=== PATIENT | female | born 1970 ===

== ENCOUNTER 2016-10-18 19:22 | Emergency (ER) | payer SELFPAY ==
[2016-10-18 19:22] VITALS: BMI 29.4
[2016-10-18 19:57] VITALS: O2SAT 100
--- NOTE | 2016-10-18 20:18 | C.PDOC ---
History Of Present Illness 46 year old female presents to the ED with complaints of hearing voices and decreased appetite for two weeks. As per patient's niece, patient has been losing weight, has been diagnosed with schizophrenia and is compliant with medications. Patient also notes a constant left sided chest pain for two weeks that she describes as an "empty" sensation. Patient's niece states patient was seen in the ED 3-4 days ago for similar complaints. She denies any other medical problems, physical complaints, and suicidal or homicidal ideations. Time Seen by Provider: 10/18/16 20:09 Chief Complaint (Nursing): Psychiatric Evaluation History Per: Family (niece ) History/Exam Limitations: no limitations Onset/Duration Of Symptoms: Persistent (2 weeks ) Current Symptoms Are (Timing): Still Present Suicide/Self Injury Attempted (Context): None Associated Symptoms: Other (patient is hearing voice and decreased appetite ). denies: Suicidal Thoughts, Suicidal Plan Involuntary Hold By: None Recent travel outside of the [place]: No Additional History Per: Patient Past Medical History Reviewed: Historical Data, Nursing Documentation, Vital Signs Vital Signs: Last Vital Signs Temp 98.2 F 10/19/16 01:25 Pulse 72 10/19/16 01:25 Resp 20 10/19/16 01:25 BP 112/70 10/19/16 01:25 Pulse Ox 100 10/19/16 01:25 - Medical History PMH: Anxiety, Bipolar Disorder, Depression Family History: States: Other Other Family History: non-contributory - Social History Hx Tobacco Use: No Hx Alcohol Use: No Hx Substance Use: No - Immunization History Hx Tetanus Toxoid Vaccination: No Hx Influenza Vaccination: No Hx Pneumococcal Vaccination: No Review Of Systems Constitutional: Positive for: Other (decreased appetite ). Negative for: Fever , Chills Cardiovascular: Positive for: Chest Pain (left sided chest pain describes as "empty" sensation ). Negative for: Palpitations Respiratory: Negative for: Cough, Shortness of Breath Gastrointestinal: Negative for: Nausea, Vomiting, Abdominal Pain, Diarrhea Neurological: Negative for: Weakness, Numbness, Headache Psych: Positive for: Other (patient states she is hearing voices ). Negative for: Suicidal ideation Physical Exam - Physical Exam Appears: Non-toxic, No Acute Distress Skin: Warm, Dry Head: Atraumatic Eye(s): bilateral: Normal Inspection, PERRL, EOMI Oral Mucosa: Moist Neck: Supple Chest: Symmetrical, No Deformity Cardiovascular: Rhythm Regular Respiratory: No Rhonchi, No Wheezing Gastrointestinal/Abdominal: Soft, No Tenderness, No Distention, No Guarding, No Rebound Extremity: Normal ROM, No Tenderness Neurological/Psych: Oriented x3, Normal Speech, Normal Cognition, Normal Cranial Nerves, Normal Motor, Normal Sensation, Normal Reflexes, Other (flat affect ) ED Course And Treatment - Laboratory Results Result Diagrams: 10/18/16 20:53 10/18/16 20:53 O2 Sat by Pulse Oximetry: 100 (room air ) Medical Decision Making Medical Decision Making: EKG interpretation: nsr 63, nl axis, nl int, no acute ischemia cxr- nad the pt is medically clear for psych admission with medicine consult Disposition - Disposition Disposition: Trans to Other Acute Care Hosp Disposition Time: 01:00 Condition: STABLE - Clinical Impression Clinical Impression: Schizophrenia - Scribe Statement The provider has reviewed the documentation as recorded by the Scribangel Orozco All medical record entries made by the Ronibangel were at my direction and personally dictated by me. I have reviewed the chart and agree that the record accurately reflects my personal performance of the history, physical exam, medical decision making, and the department course for this patient. I have also personally directed, reviewed, and agree with the discharge instructions and disposition.
[2016-10-18 21:01] LABS: HCG,QUALITATIVE URINE NEGATIVE (NEGATIVE)
[2016-10-18 21:04] LABS: SQUAMOUS EPITHIAL 1 /hpf (0-5); URINE BACTERIA OCC (<OCC); URINE BILIRUBIN NEGATIVE (NEGATIVE); URINE BLOOD NEGATIVE (NEGATIVE); URINE CLARITY Clear (Clear); URINE COLOR Straw (YELLOW); URINE GLUCOSE (UA) NORMAL (Normal); URINE LEUKOCYTE ESTERASE NEG Leu/uL (Negative); URINE NITRATE NEGATIVE (NEGATIVE); URINE PROTEIN NEGATIVE (NEGATIVE); URINE UROBILINOGEN NORMAL mg/dL (0.2-1.0)
[2016-10-18 21:06] LABS: BASO # 0.1 K/uL (0.0-0.2); BASO % 0.5 % (0.0-2.0); EOS % 0.5 % (0.0-4.0); LYMPH # 2.8 K/uL (1.0-4.3); LYMPH % 30.1 % (20.0-40.0); MEAN CORPUSCULAR HEMOGLOBIN 22.3 pg (27.0-31.0); MEAN CORPUSCULAR HGB CONC 29.4 g/dL (33.0-37.0); MEAN PLATELET VOLUME 8.1 fL (7.2-11.7); MONO % 10.7 % (0.0-10.0); NEUT # 5.5 K/uL (1.8-7.0); NEUT % 58.2 % (50.0-75.0); RBC 3.78 Mil/uL (3.80-5.20); RED CELL DISTRIBUTION WIDTH 17.1 % (11.5-14.5); WHITE BLOOD COUNT 9.4 K/uL (4.8-10.8)
[2016-10-18 21:08] LABS: HEMOGLOBIN 8.4 g/dL (11.0-16.0); MEAN CELL VOLUME 75.8 fL (81.0-99.0)
[2016-10-18 21:14] LABS: BENZODIAZEPINES, UR NEGATIVE (NEGATIVE)
[2016-10-18 21:16] LABS: ALBUMIN 4.4 g/dL (3.5-5.0)
[2016-10-18 21:17] LABS: OPIATES, UR NEGATIVE (NEGATIVE)
[2016-10-18 21:18] LABS: ALB/GLOB RATIO 1.4 (1.0-2.1); AST/SGOT 45 U/L (14-36); GFR AFRICAN-AMERICAN > 60; GFR NON-AFRICAN AMERICAN > 60; PHENCYCLIDINE, UR NEGATIVE (NEGATIVE)
[2016-10-18 21:19] LABS: ALT/SGPT 32 U/L (9-52); BLOOD UREA NITROGEN 12 mg/dL (7-17); CALCIUM 9.8 mg/dl (8.6-10.4)
[2016-10-18 21:20] LABS: SALICYLATE < 1.0 mg/dL 1
[2016-10-18 21:28] LABS: ACETAMINOPHEN < 10.0 ug/mL (10.0-30.0)
[2016-10-18 21:49] LABS: BARBITURATES, UR NEGATIVE (NEGATIVE)
--- NOTE | 2016-10-18 22:53 | CP.PCM.HP ---
Addendum entered and electronically signed by Sherrill Lewis DO 10/19/16 01:19 : As per niece, please notify her, when her Aunt is being transferred to a psych facility - [facility] [phone]. The niece is russian speaking. Original Note: <JoshuaSherrill - Last Filed: 10/19/16 00:36> History of Present Illness - History of Present Illness History of Present Illness: Medicine CONSULT Note CC: Depression, chest pain HPI: 46F with PMHx of Depression, Schizophrenia presents to the ED with depression and chest pain. As per the patient's niece, she has been depressed for the past 2 weeks with a decrease in appetite, doesn't want to get out of bed. She started having left sided chest pain that she describes as an "emptiness". This "pain" does not radiate, she states she continues to feel this left sided chest pain. Denied fever, chills, headache, abdominal pain, n/v/ d/c, or urinary symptoms. PMHx: Depression, Schizophrenia PSHx: Denied Meds: As per MAR Allergies: NKDA SHx: Denied tobacco, alcohol, or illicit drug use FHx: Unremarkable Present on Admission - Present on Admission Any Indicators Present on Admission: No Review of Systems - Constitutional Constitutional: Weight Loss. absent: Fatigue, Lethargy - EENT Eyes: absent: Change in Vision Ears: absent: Ear Pain, Tinnitus Nose/Mouth/Throat: absent: Nasal Discharge - Breasts Breasts: absent: Pain - Cardiovascular Cardiovascular: Chest Pain. absent: Chest Pain at Rest - Respiratory Respiratory: absent: Cough, Dyspnea - Gastrointestinal Gastrointestinal: absent: Abdominal Pain - Genitourinary Genitourinary: absent: Dysuria, Hematuria - Musculoskeletal Musculoskeletal: absent: Back Pain - Integumentary Integumentary: absent: Wounds - Neurological Neurological: absent: Tingling, Tremor, Vertigo, Weakness - Psychiatric Psychiatric: Anxiety, Depression - Endocrine Endocrine: absent: Polydipsia, Polyphagia, Polyuria - Hematologic/Lymphatic Hematologic: absent: Easy Bleeding, Easy Bruising Past Patient History - Infectious Disease Hx of Infectious Diseases: None - Past Social History Smoking Status: Never Smoked - CARDIAC Hx Cardiac Disorders: No - PULMONARY Hx Respiratory Disorders: No - NEUROLOGICAL Hx Neurological Disorder: No - HEENT Hx HEENT Problems: No - RENAL Hx Chronic Kidney Disease: No - ENDOCRINE/METABOLIC Hx Endocrine Disorders: No - HEMATOLOGICAL/ONCOLOGICAL Hx Blood Disorders: No - INTEGUMENTARY Hx Dermatological Problems: No - MUSCULOSKELETAL/RHEUMATOLOGICAL Hx Musculoskeletal Disorders: No - GASTROINTESTINAL Hx Gastrointestinal Disorders: No - GENITOURINARY/GYNECOLOGICAL Hx Genitourinary Disorders: No - PSYCHIATRIC Hx Anxiety: Yes Hx Bipolar Disorder: Yes Hx Depression: Yes Hx Substance Use: No - SURGICAL HISTORY Hx Surgeries: Yes Hx Tubal Ligation: Yes - ANESTHESIA Hx Anesthesia: No Hx Anesthesia Reactions: No Hx Malignant Hyperthermia: No Meds Allergies/Adverse Reactions: Allergies Allergy/AdvReac Type Severity Reaction Status Date / Time No Known Allergies Allergy Verified 04/30/16 11:32 Physical Exam - Constitutional Appears: No Acute Distress - Head Exam Head Exam: NORMAL INSPECTION, NORMOCEPHALIC - Eye Exam Eye Exam: EOMI, Normal appearance, PERRL - ENT Exam ENT Exam: Mucous Membranes Moist - Respiratory Exam Respiratory Exam: Clear to Auscultation Bilateral, NORMAL BREATHING PATTERN. absent: Wheezes - Cardiovascular Exam Cardiovascular Exam: REGULAR RHYTHM, RRR, +S1, +S2 - GI/Abdominal Exam GI & Abdominal Exam: Normal Bowel Sounds, Soft. absent: Distended, Tenderness - Rectal Exam Rectal Exam: Deferred - Extremities Exam Extremities exam: Positive for: normal inspection, pedal pulses present. Negative for: pedal edema, tenderness - Back Exam Back exam: NORMAL INSPECTION - Neurological Exam Neurological exam: Alert, CN II-XII Intact, Oriented x3 - Psychiatric Exam Psychiatric exam: Anxious, Depressed - Skin Skin Exam: Dry, Intact, Normal Color, Warm Results - Vital Signs Recent Vital Signs: Last Vital Signs Temp 98.4 F 10/18/16 19:53 Pulse 85 10/18/16 19:53 Resp 18 10/18/16 19:53 BP 124/81 10/18/16 19:53 Pulse Ox 100 10/18/16 21:02 - Labs Result Diagrams: 10/18/16 20:53 10/18/16 20:53 Labs: Laboratory Results - last 24 hr 10/18/16 10/18/16 10/18/16 20:53 20:53 20:53 WBC 9.4 RBC 3.78 L Hgb 8.4 L D Hct 28.7 L MCV 75.8 L D MCH 22.3 L MCHC 29.4 L RDW 17.1 H Plt Count 395 MPV 8.1 Neut % (Auto) 58.2 Lymph % (Auto) 30.1 Hand % (Auto) 10.7 H Eos % (Auto) 0.5 Baso % (Auto) 0.5 Neut # 5.5 Lymph # 2.8 Hand # 1.0 H Eos # 0.0 Baso # 0.1 Sodium 141 Potassium 3.6 Chloride 100 Carbon Dioxide 27 Anion Gap 17 BUN 12 Creatinine 0.9 Est GFR ( Amer) > 60 Est GFR (Non-Af Amer) > 60 Random Glucose 105 Calcium 9.8 Total Bilirubin 0.4 AST 45 H ALT 32 Alkaline Phosphatase 60 Troponin I < 0.0120 Total Protein 7.7 Albumin 4.4 Globulin 3.3 Albumin/Globulin Ratio 1.4 Urine Color Straw Urine Clarity Clear Urine pH 7.0 Ur Specific [place] 1.003 Urine Protein Negative Urine Glucose (UA) Normal Urine Ketones Negative Urine Blood Negative Urine Nitrate Negative Urine Bilirubin Negative Urine Urobilinogen Normal Ur Leukocyte Esterase Neg Urine WBC (Auto) 3 Urine RBC (Auto) < 1 Ur Squamous Epith Cells 1 Urine Bacteria Occ H Urine HCG, Qual Negative Salicylates Urine Opiates Screen Urine Methadone Screen Acetaminophen Ur Barbiturates Screen Ur Phencyclidine Scrn Ur Amphetamines Screen U Benzodiazepines Scrn U Oth Cocaine Metabols U Cannabinoids Screen Alcohol, Quantitative < 10 10/18/16 10/18/16 20:53 20:53 WBC RBC Hgb Hct MCV MCH MCHC RDW Plt Count MPV Neut % (Auto) Lymph % (Auto) Hand % (Auto) Eos % (Auto) Baso % (Auto) Neut # Lymph # Hand # Eos # Baso # Sodium Potassium Chloride Carbon Dioxide Anion Gap BUN Creatinine Est GFR ( Amer) Est GFR (Non-Af Amer) Random Glucose Calcium Total Bilirubin AST ALT Alkaline Phosphatase Troponin I Total Protein Albumin Globulin Albumin/Globulin Ratio Urine Color Urine Clarity Urine pH Ur Specific [place] Urine Protein Urine Glucose (UA) Urine Ketones Urine Blood Urine Nitrate Urine Bilirubin Urine Urobilinogen Ur Leukocyte Esterase Urine WBC (Auto) Urine RBC (Auto) Ur Squamous Epith Cells Urine Bacteria Urine HCG, Qual Salicylates < 1.0 Urine Opiates Screen Negative Urine Methadone Screen Negative Acetaminophen < 10.0 L Ur Barbiturates Screen Negative Ur Phencyclidine Scrn Negative Ur Amphetamines Screen Negative U Benzodiazepines Scrn Negative U Oth Cocaine Metabols Negative U Cannabinoids Screen Negative Alcohol, Quantitative Assessment & Plan - Assessment and Plan (Free Text) Assessment: 46F with PMHx of Depression, Schizophrenia presents to the ED with depression and chest pain. Plan: Chest pain * EKG: nsr 63, nl axis, nl int, no acute ischemia * 1st SYDNEE: negative * F/U ROMIs, EKG Iron Deficiency Anemia * Asymptomatic * H/H: 8.4/28.7, baseline --> 11.1 (07/2015) * Iron Panel: Iron: 26, TIBC 516, % Saturation 5, Ferritin 4.6 * Monitor Depression/Anxiety * Restarted home medications: Risperdal 1mg PO BID , Klonopin 0.5mg PO BID , Trazodone 100mg PO QHS, and Benztropine 1mg PO BID * Management as per psych Schizophrenia * Restarted home medications:Risperdal 1mg PO BID , Klonopin 0.5mg PO BID , Trazodone 100mg PO QHS, and Benztropine 1mg PO BID * Management as per psych Prophylactic Measures * GI PPX: Protonix 40mg PO daily * DVT PPX: Heparin SC Q12H * Regular Diet DW Joshua Klein DO, PGY-1 <David Sanches - Last Filed: 10/19/16 06:16> Results - Vital Signs Recent Vital Signs: Last Vital Signs Temp 98.2 F 10/19/16 01:25 Pulse 72 10/19/16 01:25 Resp 20 10/19/16 01:25 BP 112/70 10/19/16 01:25 Pulse Ox 100 10/19/16 01:25 - Labs Result Diagrams: 10/18/16 20:53 10/18/16 20:53 Labs: Laboratory Results - last 24 hr 10/18/16 10/18/16 10/18/16 20:53 20:53 20:53 WBC 9.4 RBC 3.78 L Hgb 8.4 L D Hct 28.7 L MCV 75.8 L D MCH 22.3 L MCHC 29.4 L RDW 17.1 H Plt Count 395 MPV 8.1 Neut % (Auto) 58.2 Lymph % (Auto) 30.1 Hand % (Auto) 10.7 H Eos % (Auto) 0.5 Baso % (Auto) 0.5 Neut # 5.5 Lymph # 2.8 Hand # 1.0 H Eos # 0.0 Baso # 0.1 Sodium 141 Potassium 3.6 Chloride 100 Carbon Dioxide 27 Anion Gap 17 BUN 12 Creatinine 0.9 Est GFR ( Amer) > 60 Est GFR (Non-Af Amer) > 60 Random Glucose 105 Calcium 9.8 Iron TIBC % Saturation Ferritin Total Bilirubin 0.4 AST 45 H ALT 32 Alkaline Phosphatase 60 Troponin I < 0.0120 Total Protein 7.7 Albumin 4.4 Globulin 3.3 Albumin/Globulin Ratio 1.4 Urine Color Straw Urine Clarity Clear Urine pH 7.0 Ur Specific [place] 1.003 Urine Protein Negative Urine Glucose (UA) Normal Urine Ketones Negative Urine Blood Negative Urine Nitrate Negative Urine Bilirubin Negative Urine Urobilinogen Normal Ur Leukocyte Esterase Neg Urine WBC (Auto) 3 Urine RBC (Auto) < 1 Ur Squamous Epith Cells 1 Urine Bacteria Occ H Urine HCG, Qual Negative Salicylates Urine Opiates Screen Urine Methadone Screen Acetaminophen Ur Barbiturates Screen Ur Phencyclidine Scrn Ur Amphetamines Screen U Benzodiazepines Scrn U Oth Cocaine Metabols U Cannabinoids Screen Alcohol, Quantitative < 10 10/18/16 10/18/16 10/18/16 20:53 20:53 22:47 WBC RBC Hgb Hct MCV MCH MCHC RDW Plt Count MPV Neut % (Auto) Lymph % (Auto) Hand % (Auto) Eos % (Auto) Baso % (Auto) Neut # Lymph # Hand # Eos # Baso # Sodium Potassium Chloride Carbon Dioxide Anion Gap BUN Creatinine Est GFR ( Amer) Est GFR (Non-Af Amer) Random Glucose Calcium Iron 26 L TIBC 516 H % Saturation 5 L Ferritin Total Bilirubin AST ALT Alkaline Phosphatase Troponin I Total Protein Albumin Globulin Albumin/Globulin Ratio Urine Color Urine Clarity Urine pH Ur Specific [place] Urine Protein Urine Glucose (UA) Urine Ketones Urine Blood Urine Nitrate Urine Bilirubin Urine Urobilinogen Ur Leukocyte Esterase Urine WBC (Auto) Urine RBC (Auto) Ur Squamous Epith Cells Urine Bacteria Urine HCG, Qual Salicylates < 1.0 Urine Opiates Screen Negative Urine Methadone Screen Negative Acetaminophen < 10.0 L Ur Barbiturates Screen Negative Ur Phencyclidine Scrn Negative Ur Amphetamines Screen Negative U Benzodiazepines Scrn Negative U Oth Cocaine Metabols Negative U Cannabinoids Screen Negative Alcohol, Quantitative 10/18/16 22:47 WBC RBC Hgb Hct MCV MCH MCHC RDW Plt Count MPV Neut % (Auto) Lymph % (Auto) Hand % (Auto) Eos % (Auto) Baso % (Auto) Neut # Lymph # Hand # Eos # Baso # Sodium Potassium Chloride Carbon Dioxide Anion Gap BUN Creatinine Est GFR ( Amer) Est GFR (Non-Af Amer) Random Glucose Calcium Iron TIBC % Saturation Ferritin 4.6 Total Bilirubin AST ALT Alkaline Phosphatase Troponin I Total Protein Albumin Globulin Albumin/Globulin Ratio Urine Color Urine Clarity Urine pH Ur Specific [place] Urine Protein Urine Glucose (UA) Urine Ketones Urine Blood Urine Nitrate Urine Bilirubin Urine Urobilinogen Ur Leukocyte Esterase Urine WBC (Auto) Urine RBC (Auto) Ur Squamous Epith Cells Urine Bacteria Urine HCG, Qual Salicylates Urine Opiates Screen Urine Methadone Screen Acetaminophen Ur Barbiturates Screen Ur Phencyclidine Scrn Ur Amphetamines Screen U Benzodiazepines Scrn U Oth Cocaine Metabols U Cannabinoids Screen Alcohol, Quantitative Assessment & Plan - Date & Time Date: 10/19/16 (I have seen and examined the patient. I agree with the findings and plan of care as documented by Dr. Lewis. Patient with chest pain. ROMIx3 with EKG. Aspirin and Statin. Also with anemia. Follow H/H. Check iron studies. Transfuse if necessary. Continue home meds for history of schizophrenia and depression/anxiety. Monitor for acute changes.) Time: 06:15 Attending/Attestation - Attestation I have personally seen and examined this patient.: Yes I have fully participated in the care of the patient.: Yes I have reviewed all pertinent clinical information: Yes
[2016-10-18 22:58] LABS: IRON 26 ug/dL (37-170)
[2016-10-18 23:07] LABS: % IRON SATURATION 5 (20-55); TOTAL IRON BINDING CAPACITY 516 ug/dL (250-450)
[2016-10-19] MEDS ORDERED: Bacitracin 500 Units/gm Oint Foilpak UD ONE (01:53)
[2016-10-19 02:04] VITALS: BP 112/70; PULSE 72; RESP 20; TEMP 98.2
--- NOTE | 2016-10-19 09:06 | RAD ---
HISTORY: Psychiatric evaluation COMPARISON: 03/21/2012 FINDINGS: LUNGS: No focal infiltrate or effusion. PLEURA: No significant pleural effusion identified, no pneumothorax apparent. CARDIOVASCULAR: Normal. OSSEOUS STRUCTURES: No significant abnormalities. VISUALIZED UPPER ABDOMEN: Normal. OTHER FINDINGS: None. IMPRESSION: No active disease.
[2016-10-19] MEDS ORDERED: Pantoprazole 40 mg EC Tab PO SCH (10:00)
--- NOTE | 2016-10-21 11:06 | CARD ---
APPROVED REPORT EKG Measurement Heart [id number] VT [id number] [id number] <Conclusion> Normal sinus rhythm Normal ECG
== END 2016-10-19 04:07 | disposition short-term general hospital (02) ==
LOC: C.ER 19:22
DX: F20.9 Schizophrenia, unspecified (principal)
CPT/HCPCS: 71010; 80053; 81001; 82728; 83540; 83550; 84484; 84703; 85025; 99284; G0480

== ENCOUNTER 2016-11-06 12:01 | Inpatient (IN) | payer SELFPAY ==
[2016-11-06 12:02] VITALS: BMI 29.4
[2016-11-06 12:09] VITALS: O2SAT 100
--- NOTE | 2016-11-06 13:09 | C.PDOC ---
History Of Present Illness 46 year old female presents to the emergency department with complaints of generalized weakness, loss of appetite, and lightheadedness for one month. As per mother, patient had a 15 day admission to [facility] and was discharged one week ago. Patient's mother states patient has history of depression, Bipolar disorder, Schizophrenia, and anemia. Patient notes she is seeing a psychiatrist and is compliant with medications. She states she wants to hurt herself using a knife and has done so in the past. Patient denies nausea , vomiting, homicidal ideations, or physical complaints at this time. Time Seen by Provider: 11/06/16 12:31 Chief Complaint (Nursing): Dizziness/Lightheaded History Per: Patient, Family (mother ) Onset/Duration Of Symptoms: Persistent (1 month) Current Symptoms Are (Timing): Still Present Fall Associated With With Symptoms: No Recent travel outside of the [place]: No Additional History Per: Prior Records Past Medical History Reviewed: Historical Data, Nursing Documentation, Vital Signs Vital Signs: Last Vital Signs Temp 98.2 F 11/06/16 12:08 Pulse 69 11/06/16 12:08 Resp 18 11/06/16 12:08 BP 130/77 11/06/16 12:08 Pulse Ox 100 11/06/16 16:09 - Medical History PMH: Anxiety, Bipolar Disorder, Depression Family History: States: Unknown Family Hx - Social History Hx Tobacco Use: No Hx Alcohol Use: No Hx Substance Use: No - Immunization History Hx Tetanus Toxoid Vaccination: No Hx Influenza Vaccination: No Hx Pneumococcal Vaccination: No Review Of Systems Constitutional: Positive for: Weakness. Negative for: Fever, Chills Cardiovascular: Negative for: Chest Pain, Palpitations Respiratory: Negative for: Cough, Shortness of Breath Gastrointestinal: Negative for: Nausea, Vomiting, Abdominal Pain, Diarrhea Psych: Positive for: Depression, Suicidal ideation, Other (Bipolar and schizophrenia ) Physical Exam - Physical Exam Appears: Non-toxic, No Acute Distress Skin: Warm, Dry Head: Atraumatic Eye(s): bilateral: Other (pale conjunctiva ) Oral Mucosa: Moist Neck: Supple Chest: Symmetrical, No Deformity Cardiovascular: Rhythm Regular Respiratory: Normal Breath Sounds, No Rhonchi, No Wheezing Gastrointestinal/Abdominal: Soft, No Tenderness, No Distention, No Guarding, No Rebound Extremity: Normal ROM, No Tenderness Neurological/Psych: Oriented x3, Normal Speech, Normal Cognition, Normal Cranial Nerves, Normal Motor, Normal Sensation Gait: Steady ED Course And Treatment - Laboratory Results Result Diagrams: 11/06/16 13:53 11/06/16 13:53 ECG Rhythm: Sinus Rhythm (NSR 66bpm) O2 Sat by Pulse Oximetry: 100 (room air ) Medical Decision Making Medical Decision Making: pt seen by crisis team, to be admitted to psych for Dr Kang for major depressive disorder. pt is anemic, known to be anemic, unchanged from last lab work, to continue iron. pt is medically cleared for psych eval. Disposition Discussed With DrIraida: Hung Kang Doctor Will See Patient In The: Hospital - Disposition Disposition Time: 16:08 Condition: SERIOUS Forms: [facility] (Greek) - Clinical Impression Clinical Impression: Major depressive disorder, Suicidal ideation - Scribe Statement The provider has reviewed the documentation as recorded by the Scribe Ina Orozco All medical record entries made by the Scribe were at my direction and personally dictated by me. I have reviewed the chart and agree that the record accurately reflects my personal performance of the history, physical exam, medical decision making, and the department course for this patient. I have also personally directed, reviewed, and agree with the discharge instructions and disposition. Decision To Admit - Pt Status Changed To: Hospital Disposition Of: Inpatient - Admit Certification Admit to Inpatient:: After my assessment, the patient will require hospitalization for at least two midnights. This is because of the severity of symptoms shown, intensity of services needed, and/or the medical risk in this patient being treated as an outpatient. - InPatient: Physician Admission Certification: I certify that this patient requires 2 or more midnights of care for the following reason:: for psychiatric eval - . Bed Request Type: Psychiatry Patient Diagnosis: Major depressive disorder, Suicidal ideation
[2016-11-06 14:13] LABS: BASO % 0.2 % (0.0-2.0); EOS % 0.3 % (0.0-4.0); LYMPH # 2.1 K/uL (1.0-4.3); LYMPH % 14.9 % (20.0-40.0); MEAN CELL VOLUME 80.6 fL (81.0-99.0); MEAN CORPUSCULAR HEMOGLOBIN 23.9 pg (27.0-31.0); MEAN CORPUSCULAR HGB CONC 29.6 g/dL (33.0-37.0); MONO # 1.1 K/uL (0.0-0.8); NEUT # 10.6 K/uL (1.8-7.0); NEUT % 76.6 % (50.0-75.0); NRBC % 0.2 % (0.0-2.0); RBC 3.56 Mil/uL (3.80-5.20); RED CELL DISTRIBUTION WIDTH 24.8 % (11.5-14.5); WHITE BLOOD COUNT 13.9 K/uL (4.8-10.8)
[2016-11-06 14:17] LABS: SQUAMOUS EPITHIAL 11 /hpf (0-5); URINE BACTERIA RARE (<OCC); URINE BILIRUBIN NEGATIVE (NEGATIVE); URINE BLOOD 3+ (NEGATIVE); URINE CLARITY Hazy (Clear); URINE COLOR Yellow (YELLOW); URINE GLUCOSE (UA) NORMAL (Normal); URINE LEUKOCYTE ESTERASE TRACE Leu/uL (Negative); URINE NITRATE NEGATIVE (NEGATIVE); URINE PROTEIN NEGATIVE (NEGATIVE); URINE UROBILINOGEN NORMAL mg/dL (0.2-1.0)
[2016-11-06 14:22] LABS: ALBUMIN 4.3 g/dL (3.5-5.0)
[2016-11-06 14:25] LABS: ALB/GLOB RATIO 1.3 (1.0-2.1); AST/SGOT 28 U/L (14-36); BLOOD UREA NITROGEN 11 mg/dL (7-17); GFR AFRICAN-AMERICAN > 60; GFR NON-AFRICAN AMERICAN > 60
[2016-11-06 14:26] LABS: ALT/SGPT 33 U/L (9-52); CALCIUM 9.3 mg/dl (8.6-10.4)
[2016-11-06 14:31] LABS: BARBITURATES, UR NEGATIVE (NEGATIVE); BENZODIAZEPINES, UR NEGATIVE (NEGATIVE)
[2016-11-06 14:34] LABS: OPIATES, UR NEGATIVE (NEGATIVE)
[2016-11-06 14:35] LABS: PHENCYCLIDINE, UR NEGATIVE (NEGATIVE)
[2016-11-06 14:35] LABS: HEMOGLOBIN 8.5 g/dL (11.0-16.0)
--- NOTE | 2016-11-06 19:11 | PCM.BM ---
<Tamara Gómez - Last Filed: 11/06/16 19:08> Treatment Plan Problems - Problems identified on initial assessmt Depression Date Initiated: 11/06/16 Time Initiated: 17:00 Assessment reference: NA Status: Active Treatment assets and liabiliti Patient Assests: cooperative, motivated Patient Liabilities: financial problems, poor support system - Milieu Protocol Maintain good personal hygiene: daily Encourage regular showers, daily Remind patient to perform daily oral care Maintain personal safety: every shift Educate patient to report safety concerns to staff, every shift Monitor environment for contraband/sharps Medication safety: Monitor for expected outcome, potential side effects: every shift, Assess barriers to learning: every shift, Assess readiness for medication education: every shift <Hung Kang - Last Filed: 11/09/16 11:26> - Diagnosis (1) Major depressive disorder, recurrent, severe with psychotic features Status: Acute Interventions: 11/09/16 11:26 attend groups take meds <Joana Garvin - Last Filed: 11/09/16 11:32> Family Contact Family involvement: Family/SO is involved Family contact: Patient agrees to contact Family contact name: Brother - Outside Agency Agency 1 Care involvment: Information-sharing Agency contact name: [facility] Agency contact number: - Goals for Treatment Patient goals for treatment: "I want to go back to my outpatient program." Discharge/Continuing Care - Education Needs Education Needs: Patient Medication, Patient Coping Skills - Discharge Discharge Criteria: Tolerates medication w/o severe side effects, Free of Suicidal thoughts Discharge to:: Home, With Family - Treatment Team Participation Was Patient/Family/SO present at Treatment Team Meeting: Yes
--- NOTE | 2016-11-07 20:26 | PCM.PSYCH ---
Initial Psychiatric Evaluation - Initial Psychiatric Evaluation Type of Admission: Voluntary Legal Status: Capacity Chief Complaint (in patient's own words): I'm depressed and nervous Patient's Reaction to Hospitalization: This is a 46 years old female who was admitted for the treatment of depression. Pt reported that she had depression for many years and in treatment , but the treatment is now effective. she reported her depressive start worsening for last 3 weeks and it was associated with suicidal toughts, but without any plan. However, she reported improvement in suicidal ideation after admission into the hospital. She contracted for safety. She reported low self esteem, with thoughts of guilt, low motivation to do her ADL's, difficulty in focusing, and paying attention, with increase in sleep and low appetite. She denied manic symptoms, perceptual disturbances. She denied panic attack symptoms, anxiety symptoms. Chart was reviewed. and virtual classroom manager services was used via [employer] # [id number] History of Present Illness and Precipitating Events: Pt denied any stressors Current Medications: Active Medications Generic Name Dose Route Start Last Admin Trade Name Freq PRN Reason Stop Dose Admin Acetaminophen 650 mg 11/06/16 17:35 Tylenol 325mg Tab PO Q6 PRN Fever >100.4 F Benztropine Mesylate 1 mg 11/06/16 18:00 11/07/16 17:30 Cogentin PO 1 mg BID IRINA Administration Diphenhydramine HCl 50 mg 11/06/16 17:35 11/06/16 21:13 Benadryl PO 50 mg Q6 PRN Administration Extra Pyramidal Symptoms Hydroxyzine HCl 25 mg 11/07/16 20:19 Atarax PO HS PRN insomnia, anxiety Lorazepam 1 mg 11/06/16 17:35 11/06/16 19:21 Ativan PO 1 mg Q6 PRN Administration Anxiety Risperidone 1 mg 11/06/16 18:00 11/07/16 17:30 Risperdal Tab PO 1 mg BID IRINA Administration Sertraline HCl 25 mg 11/08/16 10:00 Zoloft PO DAILY IRINA Past Psychiatric History - Past Psychiatric History Prior Psychiatric Treatment: Pt had multiple inpat admission and she is in treatment at [facility] At [facility]: [facility] Duration: days to week Nature of Treatment: Medication managment Explanation of prior treatment: Depression History of Abuse: Denied History of ETOH/Drug Use: Denied History of Family Illness: Denied Pertinent Medical Hx (Current Medical&Sleep Prob, Allergies): Allergies Allergy/AdvReac Type Severity Reaction Status Date / Time No Known Allergies Allergy Verified 04/30/16 11:32 Benztropine [Benztropine Mesylate] 1 mg PO BID 10/18/16 Clonazepam [Klonopin] 0.5 mg PO BID 10/18/16 Risperidone [Risperdal] 1 mg PO BID 10/18/16 traZODone [trazodone Hydrochloride] 100 mg PO HS 10/18/16 Anemia Review of Systems - Constitutional Constitutional: UN - EENT Eyes: UNREMARKABLE Ears: UNREMARKABLE Nose/Mouth/Throat: UNREMARKABLE - Breasts Breasts: UNREMARKABLE - Cardiovascular Cardiovascular: UNREMARKABLE - Respiratory Respiratory: UNREMARKABLE - Gastrointestinal Gastrointestinal: UNREMARKABLE - Genitourinary Genitourinary: UNREMARKABLE - Reproductive: Female Reproductive:Female: UNREMARKABLE - Menstruation Menstruation: UNREMARKABLE - Musculoskeletal Musculoskeletal: UNREMARKABLE - Integumentary Integumentary: UNREMARKABLE - Neurological Neurological: UNREMARKABLE - Psychiatric Psychiatric: UNREMARKABLE - Endocrine Endocrine: UNREMARKABLE - Hematologic/Lymphatic Hematologic: UNREMARKABLE Mental Status Examination - Personal Presentation Personal Presentation: Looks stated age - Affect Affect: Depressed - Motor Activity Motor Activity: Psychomotor Retardation - Reliability in Providing Information Reliability in Providing Information: Good, Fair - Speech Speech: Organized, Coherent - Mood Mood: Depressed - Formal Thought Process Formal Thought Process: No Impairment - Hallucinations/Delusions Hallucinations: Other (denied) Delusions: Other (denied) - Obsessions/Compulsions Obsessions: No Compulsions: No - Cognitive Functions Orientation: Person, Place, Situation, Time Judgement: Intact, as evidence by: Good judgement, Intact, as evidence by: Insight regarding need for hospitalization Memory: Recent intact, as evidence by: Ability to recall events of the day - Risk Risk: Diminished functioning - Strength & Assets Inventory Strength & Assets Inventory: Family support DSM 5 DX - DSM 5 DSM 5 Diagnosis: Major depressive disorder, severe, recurrent, - Recommended/Plan of Treatment Treatment Recommendations and Plan of Treatment: Admit to inpatient unit for stabilization of depressed mood. D/C Trazodone. Start Sertraline 25 mg po daily for depression. Will titrate according to her response. Start Ativan 1 mg po Q6hr prn for severe anxiety Start Atrax 25 mg po at bedtime prn for insomnia. Continue Risperdal 1 mg po BID for augmentation and mood stabilization. Continue Cogentin for EPS sx prevention. Monitor vitals as per floor protocol Medication benefits and side effects were in detail. He verbalized understanding and in agreement with the plan. Therapy in milieu Pt was encouraged to attend groups Projected ELOS: 11/14/16 Prognosis: fair as pt is compliant with treatment Discharge Plan and Discharge Criteria: As per manager social services - Smoking Cessation Smoking Cessation Initiated: No Reason for not providing: n/a
[2016-11-08] MEDS: Multiple Vitamins Tab PO SCH (14:06)
--- NOTE | 2016-11-08 17:46 | PCM.PYCHPN ---
Psychiatric Progress Note - Psychiatric Progress Note Patient seen today, length of contact: 17 minutes Patient Chief Complaint: "I'm feeling little better" Problems Identified/Issues Discussed: Pt seen and evaluated. Chart reviewed and nurse input received. She reported that she is feeling "Little better." She denied SI, HI, intent or plan. She reported that she slept well and her appetite is little better. She denied A/V/H, Paranoid delusions. Medical Problems: Depression DSM 5 Symptoms Update: MDD, RECURRENT, Medication Change: No Medical Record Reviewed: Yes Consults ordered or reviewed: NONE Mental Status Examination - Cognitive Function Orientation: Person, Place, Situation, Time Memory: Intact Attention: WNL Concentration: WNL Association: WNL Fund of Knowledge: Poor Decription of patient's judgement and insights: Limited/Limited - Mood Additional comments: "I'm feeling little better" - Affect Affect: Constricted, Depressed - Speech Speech: Soft - Formal Thought Process Formal Thought Process: No Impairment Psychotic Thoughts and Behaviors: Denied A/V/H - Suicidal Ideation Suicidal Ideation: No - Homicidal Ideation Homicidal Ideation: No Goal/Treatment Plan - Goal/Treatment Plan Need for Continued Stay: Discharge may exacerbated symptoms, Severe functional impairment Progress Toward Problem(s) and Goals/Treatment Plan: Continue. Sertraline 25 mg po daily for depression. Will titrate according to her response. Ativan 1 mg po Q6hr prn for severe anxiety Atrax 25 mg po at bedtime prn for insomnia. Risperdal 1 mg po BID for augmentation and mood stabilization. Cogentin for EPS sx prevention. Monitor vitals as per floor protocol Medication benefits and side effects were in detail. she verbalized understanding alternative medication to SSRI was also offered. She is in agreement with the current treatment plan. Therapy in milieu Pt was encouraged to attend groups Estimated Date of D/C: 11/15/16 - Smoking Cessation Smoking Cessation Initiated: No Reason for not providing: pt denied smoking cigarettes
[2016-11-09] MEDS: Multiple Vitamins Tab PO SCH (09:59)
--- NOTE | 2016-11-09 11:27 | PCM.PYCHPN ---
Psychiatric Progress Note - Psychiatric Progress Note Patient seen today, length of contact: 16 minutes Patient Chief Complaint: I am hearing voices.' Problems Identified/Issues Discussed: Patient seen and evaluated, chart reviewed and discussed with the nurse. Patient remained depressed and withdrawn. She remained delusional and suspicious and remained disorganized and internally preoccupied. She continued to pace back and forth in the hallways and respond to internal stimuli. She is taking medication and denied any side effects. Supportive therapy and psychoeducation were given. Medication Change: Yes (increase risperdal) Medical Record Reviewed: Yes Mental Status Examination - Cognitive Function Orientation: Person, Place, Situation, Time Memory: Intact Attention: WNL Concentration: Poor Association: Loose Fund of Knowledge: Poor - Mood Mood: Depressed, Anxious - Affect Affect: Constricted, Depressed - Speech Speech: Soft - Formal Thought Process Formal Thought Process: Hallucinations, Delusions, Paranoia, Loosening of associations - Suicidal Ideation Suicidal Ideation: No - Homicidal Ideation Homicidal Ideation: No Goal/Treatment Plan - Goal/Treatment Plan Need for Continued Stay: Discharge may exacerbated symptoms, Severe functional impairment Progress Toward Problem(s) and Goals/Treatment Plan: Major depressive disorder, severe, recurrent severe with psychotic features R/O Schizoaffective disorder depressed type CBT Psychoeducation Supportive therapy, individual therapy Sertraline 25 mg po daily Ativan 1 mg po Q6hr prn for severe anxiety Atrax 25 mg po at bedtime prn for insomnia. Risperdal 1 mg po BID Cogentin for EPS sx prevention. Pt was encouraged to attend groups Estimated Date of D/C: 11/15/16 - Smoking Cessation Smoking Cessation Initiated: No
--- NOTE | 2016-11-09 14:43 | CARD ---
APPROVED REPORT EKG Measurement Heart [id number] <Conclusion> Normal sinus rhythm Minimal voltage criteria for LVH, may be normal variant Borderline ECG
[2016-11-10] MEDS: Multiple Vitamins Tab PO SCH (09:58)
--- NOTE | 2016-11-10 10:06 | PCM.PYCHPN ---
Psychiatric Progress Note - Psychiatric Progress Note Patient seen today, length of contact: 16 minutes Patient Chief Complaint: I am still hearing voices.' Problems Identified/Issues Discussed: Patient seen and evaluated, chart reviewed and discussed with the nurse. As per the staff pt remained isolated, withdrawn, disheveled and unkempt. She remained disorganized and internally preoccupied. She remained delusional and paranoid. She is still pacing back and forth in the hallways and responding to internal stimuli. She is taking medication and denied any side effects. S he needs more time for stabilization. Supportive therapy and psychoeducation were given. Medication Change: Yes (increase zoloft) Medical Record Reviewed: Yes Mental Status Examination - Cognitive Function Orientation: Person, Place, Situation, Time Memory: Intact Attention: WNL Concentration: Poor Association: Loose Fund of Knowledge: Poor - Mood Mood: Depressed, Anxious - Affect Affect: Constricted, Depressed - Speech Speech: Soft - Formal Thought Process Formal Thought Process: Hallucinations, Delusions, Paranoia, Loosening of associations - Suicidal Ideation Suicidal Ideation: No - Homicidal Ideation Homicidal Ideation: No Goal/Treatment Plan - Goal/Treatment Plan Need for Continued Stay: Discharge may exacerbated symptoms, Severe functional impairment Progress Toward Problem(s) and Goals/Treatment Plan: Major depressive disorder, severe, recurrent severe with psychotic features R/O Schizoaffective disorder depressed type CBT Psychoeducation Supportive therapy, individual therapy Sertraline 25 mg po daily Risperdal 1 mg po daily Risperdal 2 mg PO QHS Cogentin 1 mg pO BID Ativan 1 mg po Q6hr prn for severe anxiety Atrax 25 mg po at bedtime prn for insomnia. Estimated Date of D/C: 11/15/16 - Smoking Cessation Smoking Cessation Initiated: No
[2016-11-11] MEDS: Multiple Vitamins Tab PO SCH (10:00)
--- NOTE | 2016-11-11 14:38 | PCM.PYCHPN ---
Psychiatric Progress Note - Psychiatric Progress Note Patient seen today, length of contact: 16 minutes Patient Chief Complaint: I am still hearing voices.' Problems Identified/Issues Discussed: Patient seen and evaluated, chart reviewed and discussed with the nurse. Pt remained remained disorganized and internally preoccupied. She remained delusional and paranoid. She is still pacing back and forth in the hallways and responding to internal stimuli. She is taking medication and denied any side effects. She needs more time for stabilization. Supportive therapy and psychoeducation were given. Medication Change: Yes (increase zoloft, start trazodone) Medical Record Reviewed: Yes Mental Status Examination - Cognitive Function Orientation: Person, Place, Situation, Time Memory: Intact Attention: WNL Concentration: Poor Association: Loose Fund of Knowledge: Poor - Mood Mood: Depressed, Anxious - Affect Affect: Constricted, Depressed - Speech Speech: Soft - Formal Thought Process Formal Thought Process: Hallucinations, Delusions, Paranoia, Loosening of associations - Suicidal Ideation Suicidal Ideation: No - Homicidal Ideation Homicidal Ideation: No Goal/Treatment Plan - Goal/Treatment Plan Need for Continued Stay: Discharge may exacerbated symptoms, Severe functional impairment Progress Toward Problem(s) and Goals/Treatment Plan: Major depressive disorder, severe, recurrent severe with psychotic features R/O Schizoaffective disorder depressed type CBT Psychoeducation Supportive therapy, individual therapy Sertraline 75 mg po daily Risperdal 1 mg po daily Risperdal 2 mg PO QHS Cogentin 1 mg pO BID Ativan 1 mg po Q6hr prn for severe anxiety Atrax 25 mg po at bedtime prn for insomnia. Trazodone 50 mg pO QHS Estimated Date of D/C: 11/15/16 - Smoking Cessation Smoking Cessation Initiated: No
[2016-11-12 07:48] LABS: BASO % 0.6 % (0.0-2.0); EOS % 0.6 % (0.0-4.0); HEMOGLOBIN 9.6 g/dL (11.0-16.0); LYMPH # 1.7 K/uL (1.0-4.3); LYMPH % 22.6 % (20.0-40.0); MEAN CELL VOLUME 80.1 fL (81.0-99.0); MEAN CORPUSCULAR HEMOGLOBIN 24.6 pg (27.0-31.0); MEAN CORPUSCULAR HGB CONC 30.7 g/dL (33.0-37.0); MEAN PLATELET VOLUME 7.9 fL (7.2-11.7); MONO # 0.8 K/uL (0.0-0.8); MONO % 10.5 % (0.0-10.0); NEUT % 65.7 % (50.0-75.0); NRBC % 0.1 % (0.0-2.0); RBC 3.88 Mil/uL (3.80-5.20); RED CELL DISTRIBUTION WIDTH 24.9 % (11.5-14.5); WHITE BLOOD COUNT 7.6 K/uL (4.8-10.8)
[2016-11-12] MEDS: Multiple Vitamins Tab PO SCH (09:34)
--- NOTE | 2016-11-12 10:15 | PCM.PYCHPN ---
Psychiatric Progress Note - Psychiatric Progress Note Patient seen today, length of contact: 16 minutes Patient Chief Complaint: I am still hearing voices.' Problems Identified/Issues Discussed: Patient seen and evaluated, chart reviewed and discussed with the nurse. As per the staff pt remained isolated, withdrawn, disheveled and unkempt. She remained disorganized and internally preoccupied. She remained delusional and paranoid. She is still pacing back and forth in the hallways and responding to internal stimuli. She is taking medication and denied any side effects. She needs more time for stabilization. Supportive therapy and psychoeducation were given. Medication Change: Yes (increase zoloft, start remeron, increase risperdal) Medical Record Reviewed: Yes Mental Status Examination - Cognitive Function Orientation: Person, Place, Situation, Time Memory: Intact Attention: WNL Concentration: Poor Association: Loose Fund of Knowledge: Poor - Mood Mood: Depressed, Anxious - Affect Affect: Constricted, Depressed - Speech Speech: Soft - Formal Thought Process Formal Thought Process: Hallucinations, Delusions, Paranoia, Loosening of associations - Suicidal Ideation Suicidal Ideation: No - Homicidal Ideation Homicidal Ideation: No Goal/Treatment Plan - Goal/Treatment Plan Need for Continued Stay: Discharge may exacerbated symptoms, Severe functional impairment Progress Toward Problem(s) and Goals/Treatment Plan: Major depressive disorder, severe, recurrent severe with psychotic features R/O Schizoaffective disorder depressed type CBT Psychoeducation Supportive therapy, individual therapy Sertraline 150 mg po daily Risperdal 2 mg po daily Risperdal 2 mg PO QHS Cogentin 1 mg pO BID Trazodone 50 mg pO QHS Remeron 15 mg PO QHS Ativan 1 mg po Q6hr prn for severe anxiety Atrax 25 mg po at bedtime prn for insomnia. Estimated Date of D/C: 11/15/16
[2016-11-13] MEDS: Multiple Vitamins Tab PO SCH (09:52)
--- NOTE | 2016-11-13 10:41 | PCM.PYCHPN ---
Psychiatric Progress Note - Psychiatric Progress Note Patient seen today, length of contact: 16 minutes Patient Chief Complaint: I am feeling very anxious.' Problems Identified/Issues Discussed: Patient seen and evaluated, chart reviewed and discussed with the nurse. Pt remained isolated, and withdrawn. She has stated taking care of her hygiene but remained delusional and paranoid. She appear more organized and less internally preoccupied. However, still pacing back and forth in the hallways. She is taking medication and denied any side effects. She needs more time for stabilization. Supportive therapy and psychoeducation were given. Medication Change: Yes ( increase zoloft) Medical Record Reviewed: Yes Mental Status Examination - Cognitive Function Orientation: Person, Place, Situation, Time Memory: Intact Attention: WNL Concentration: WNL Association: Loose Fund of Knowledge: WNL - Mood Mood: Depressed, Anxious - Affect Affect: Constricted, Depressed - Speech Speech: Soft - Formal Thought Process Formal Thought Process: Hallucinations, Delusions, Loosening of associations - Suicidal Ideation Suicidal Ideation: No - Homicidal Ideation Homicidal Ideation: No Goal/Treatment Plan - Goal/Treatment Plan Need for Continued Stay: Discharge may exacerbated symptoms, Severe functional impairment Progress Toward Problem(s) and Goals/Treatment Plan: Major depressive disorder, severe, recurrent severe with psychotic features R/O Schizoaffective disorder depressed type CBT Psychoeducation Supportive therapy, individual therapy Sertraline 200 mg po daily Risperdal 2 mg po daily Risperdal 2 mg PO QHS Cogentin 1 mg pO BID Trazodone 50 mg pO QHS Remeron 15 mg PO QHS Ativan 1 mg po Q6hr prn for severe anxiety Atrax 25 mg po at bedtime prn for insomnia. Estimated Date of D/C: 11/15/16
[2016-11-14] MEDS: Multiple Vitamins Tab PO SCH (09:19)
--- NOTE | 2016-11-14 18:39 | PCM.PYCHPN ---
Psychiatric Progress Note - Psychiatric Progress Note Patient seen today, length of contact: 16 minutes Patient Chief Complaint: "I'm OK" Problems Identified/Issues Discussed: The pt is seen, chart reviewed, case discussed with staff. The pt is compliant with medications and reports no side-effects. Symptoms are improving but needs more time to stabilize. After care discussed, support and psychoeducation given. Medication Change: No Medical Record Reviewed: Yes Mental Status Examination - Cognitive Function Orientation: Person, Place, Situation, Time Memory: Intact Attention: WNL Concentration: WNL Association: Loose Fund of Knowledge: WNL - Mood Mood: Depressed, Anxious - Affect Affect: Constricted, Depressed - Speech Speech: Soft - Formal Thought Process Formal Thought Process: Paranoia - Suicidal Ideation Suicidal Ideation: No - Homicidal Ideation Homicidal Ideation: No Goal/Treatment Plan - Goal/Treatment Plan Need for Continued Stay: Discharge may exacerbated symptoms, Severe functional impairment Progress Toward Problem(s) and Goals/Treatment Plan: Continue medications Support and psychoeducation daily Attend groups and activities daily After care planning by day BLANCO Estimated Date of D/C: 11/17/16
[2016-11-15 08:02] VITALS: RESP 20
[2016-11-15] MEDS: Multiple Vitamins Tab PO SCH (09:37)
--- NOTE | 2016-11-15 19:29 | PCM.PYCHPN ---
Psychiatric Progress Note - Psychiatric Progress Note Patient seen today, length of contact: 15 min Patient Chief Complaint: "When can I leave?" Problems Identified/Issues Discussed: The pt is seen, chart reviewed, case discussed with staff. Support given. No new symptoms reported, improving slowly and needs some more time No SEs from medications, risks discussed. After care discussed, she just wants to leave Medication Change: No Medical Record Reviewed: Yes Mental Status Examination - Cognitive Function Orientation: Person, Place, Situation, Time Memory: Intact Attention: WNL Concentration: Poor Association: Loose Fund of Knowledge: Poor - Mood Mood: Depressed (less), Anxious - Affect Affect: Constricted, Depressed - Speech Speech: Soft - Formal Thought Process Formal Thought Process: No Impairment - Suicidal Ideation Suicidal Ideation: No - Homicidal Ideation Homicidal Ideation: No Goal/Treatment Plan - Goal/Treatment Plan Need for Continued Stay: Discharge may exacerbated symptoms, Severe functional impairment Progress Toward Problem(s) and Goals/Treatment Plan: Continue medications Support and psychoeducation daily Attend groups and activities daily After care planning by day BLANCO Estimated Date of D/C: 11/16/16
[2016-11-16 07:46] VITALS: BP 125/89; PULSE 111; TEMP 98.3
[2016-11-16] MEDS: Multiple Vitamins Tab PO SCH (09:47)
--- NOTE | 2016-11-16 10:41 | PCM.PYCHDC ---
Mental Status Examination - Mental Status Examination Orientation: Person, Place, Situation, Time Memory: Intact Mood: Neutral Affect: Constricted Speech: Soft Attention: WNL Concentration: WNL Association: WNL Fund of Knowledge: WNL Formal Thought Process: No Impairment Description of patient's judgement and insight: good, fair Psychotic Thoughts and Behaviors: denies any AVH Suicidal Ideation: No Current Homicidal Ideation?: No Discharge Summary - Discharge Note Reason for Hospitalization: This is a 46 years old female who was admitted for the treatment of depression. Pt reported that she had depression for many years and in treatment , but the treatment is now effective. she reported her depressive start worsening for last 3 weeks and it was associated with suicidal toughts, but without any plan. However, she reported improvement in suicidal ideation after admission into the hospital. She contracted for safety. She reported low self esteem, with thoughts of guilt, low motivation to do her ADL's, difficulty in focusing, and paying attention, with increase in sleep and low appetite. She denied manic symptoms, perceptual disturbances. She denied panic attack symptoms, anxiety symptoms. Chart was reviewed. and web press operator helper offset services was used via [employer] # [id number] Psychiatric History (includes Medical, Family, Personal Hx): Medication managment Consultations:: List each consultation separately and include: 1. Reason for request. 2. Findings. 3. Follow-up Summary of Hospital Course include:: 1. Description of specific treatment plan utilized for patients during their course of treatmen. 2. Summarize the time- course for resolution of acute symptoms and/or regressed behaviors. 3. Describe issues identified and worked on during hospitalization. 4. Describe medication utilized. 5. Describe medical problems identified and treated. 6. Reassessment of suicide risk Summary of Hospital Course: During the course of her stay, patient (pt) started progressively improving and she no longer remained depressed, paranoid and psychotic. She tolerated the medications and denied any sweating, tremors or cramps or any other side effects upon discharge. She started attending groups and meetings and started socializing. She denied any feelings of hopelessness, helplessness, and worthlessness, denied any problem with the sleep or appetite, denied suicidal ideation or homicidal ideation. Pt denied any auditory or visual hallucinations. Patient remained calm and cooperative and remained compliant with the medications. Patient tolerated the medications very well and denied any side effects. - Diagnosis (1) Major depressive disorder, recurrent, severe with psychotic features Status: Acute - Final Diagnosis (DSM 5) Condition upon Discharge: SERIOUS DSM 5: Schizoaffective disorder depressed type Disposition: HOME/ ROUTINE Follow-up Treatment Plan: Education: Pt was educated and counseled about the risks and benefits of taking and not taking medications. Pt was educated and counseled about the risks of drinking and abusing drugs. Pt was educated and counseled to go to the ER or call 911 if pt develop suicidal ideation or homicidal ideation, worsening of symptoms or severe side effects of the meds. Prescriptions/Medication Reconciliation: Benztropine [Cogentin] 1 mg PO BID #60 Mirtazapine [Remeron] 30 mg PO HS #30 tab risperiDONE [RisperDAL Tab] 2 mg PO BID #60 tab Sertraline [Zoloft] 100 mg PO DAILY #60 tab traZODone [Desyrel] 50 mg PO HS #30 tab - Smoking Cessation Smoking Cessation Medication prescribed: No - Antipsychotic Medications Pt discharged on 2 or more routine antipsychotic medications: No
== END 2016-11-16 12:25 | disposition home or self-care (01) | DRG 430 ==
LOC: C.ER 12:01 → C.5E 16:07
PROVIDERS: ADMIT Psychiatry & Neurology Psychiatry; ATTEND Psychiatry & Neurology Psychiatry
PROC: GZHZZZZ Group Psychotherapy (ICD-10-PCS; principal; 2016-11-06)
PROC: GZ58ZZZ Individual Psychotherapy, Cognitive-Behavioral (ICD-10-PCS; 2016-11-06)
PROC: GZ56ZZZ Individual Psychotherapy, Supportive (ICD-10-PCS; 2016-11-06)
DX: F33.3 Major depressive disorder, recurrent, severe with psychotic symptoms (principal); R45.851 Suicidal ideations; F25.1 Schizoaffective disorder, depressive type; D64.9 Anemia, unspecified; F41.9 Anxiety disorder, unspecified; G47.00 Insomnia, unspecified

== ENCOUNTER 2017-03-11 13:50 | Emergency (ER) | payer SELFPAY ==
[2017-03-11 13:50] VITALS: BMI 28.0
[2017-03-11 14:35] VITALS: RESP 18; O2SAT 100
[2017-03-11] MEDS ORDERED: Aspirin 325 mg EC Tablets PO STA (14:48)
[2017-03-11] MEDS ORDERED: Aspirin 325 mg EC Tablets PO ONE (15:01)
[2017-03-11 15:03] LABS: BASO % 0.5 % (0.0-2.0); EOS # 0.1 K/uL (0.0-0.7); EOS % 1.3 % (0.0-4.0); HEMATOCRIT 36.5 % (34.0-47.0); LYMPH # 2.3 K/uL (1.0-4.3); LYMPH % 25.3 % (20.0-40.0); MEAN CELL VOLUME 95.6 fL (81.0-99.0); MEAN CORPUSCULAR HEMOGLOBIN 31.1 pg (27.0-31.0); MEAN CORPUSCULAR HGB CONC 32.5 g/dL (33.0-37.0); MEAN PLATELET VOLUME 8.5 fL (7.2-11.7); MONO # 0.8 K/uL (0.0-0.8); MONO % 8.9 % (0.0-10.0); NRBC % 0.1 % (0.0-2.0); RED CELL DISTRIBUTION WIDTH 16.2 % (11.5-14.5); WHITE BLOOD COUNT 9.2 K/uL (4.8-10.8)
[2017-03-11 15:21] LABS: BILIRUBIN,TOTAL 0.8 mg/dL (0.2-1.3); CALCIUM 8.4 mg/dl (8.6-10.4); CHOLESTEROL 175 mg/dL (0-199); GFR AFRICAN-AMERICAN > 60; GLUCOSE,RANDOM 108 mg/dL (65-105)
--- NOTE | 2017-03-11 15:28 | RAD ---
HISTORY: chest pain COMPARISON: Portable chest 10/18/2016 TECHNIQUE: Chest PA and lateral FINDINGS: LUNGS: No infiltrate identified bilaterally. PLEURA: No significant pleural effusion identified. No pneumothorax apparent. CARDIOVASCULAR: Normal. OSSEOUS STRUCTURES: No significant abnormalities. VISUALIZED UPPER ABDOMEN: Normal. OTHER FINDINGS: None. IMPRESSION: No interval acute cardiopulmonary disease appreciated.
[2017-03-11 15:37] LABS: ALKALINE PHOSPHATASE 54 U/L (38-126)
[2017-03-11 15:38] LABS: ALB/GLOB RATIO 1.1 (1.0-2.1); ALT/SGPT 59 U/L (9-52); AST/SGOT 49 U/L (14-36); BLOOD UREA NITROGEN 14 mg/dL (7-17); CARBON DIOXIDE 26 mmol/L (22-30); CHLORIDE 101 mmol/L (98-107); SODIUM 129 mmol/L (132-148)
[2017-03-11 16:38] LABS: INR 1.1; PARTIAL THROMBOPLASTIN TIME 35 SECONDS (21-34)
--- NOTE | 2017-03-11 16:53 | C.PDOC ---
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 History/Exam Limitations: language barrier Onset/Duration Of Symptoms: Days (3), Intermittent Episodes Current Symptoms Are (Timing): Still Present Severity: Moderate Quality: "Pain" Associated Symptoms: denies: Nausea, Dyspnea, Diaphoresis, Syncope Modifying Factors: Other Indicated Below Exacerbating Factors: Movement Additional History Per: Prior Records Past Medical History Reviewed: Historical Data, Nursing Documentation, Vital Signs Vital Signs: Last Vital Signs Temp 98.1 F 03/11/17 14:31 Pulse 71 03/11/17 14:31 Resp 18 03/11/17 14:31 BP 102/66 03/11/17 14:31 Pulse Ox 100 03/11/17 14:31 - Medical History PMH: Anxiety, Bipolar Disorder, Depression Other PMH: Psoriasis - [facility] Procedures GROUP PSYCHOTHERAPY (11/06/16) INDIVIDUAL PSYCHOTHERAPY, COGNITIVE-BEHAVIORAL (11/06/16) INDIVIDUAL PSYCHOTHERAPY, SUPPORTIVE (11/06/16) Family History: Denies: [place] - Social History Hx Tobacco Use: No Hx Alcohol Use: No Hx Substance Use: No - Immunization History Hx Tetanus Toxoid Vaccination: No Hx Influenza Vaccination: No Hx Pneumococcal Vaccination: No Review Of Systems Except As Marked, All Systems Reviewed And Found Negative. Constitutional: Negative for: Fever, Weakness Respiratory: Negative for: Shortness of Breath, Hemoptysis Gastrointestinal: Negative for: Vomiting, Abdominal Pain Musculoskeletal: Negative for: Neck Pain, Leg Pain Skin: Positive for: Rash Neurological: Negative for: Weakness, Numbness Physical Exam - Physical Exam Appears: Non-toxic, No Acute Distress Skin: Normal Color, Warm, Dry, Rash (Psoriatic rash on chest and back) Head: Atraumatic, Normacephalic Eye(s): bilateral: PERRL, EOMI Neck: Normal ROM, Supple Cardiovascular: Rhythm Regular Respiratory: Normal Breath Sounds, No Accessory Muscle Use Gastrointestinal/Abdominal: Soft, No Tenderness Back: No CVA Tenderness Extremity: Normal ROM, No Pedal Edema, No Calf Tenderness Neurological/Psych: Oriented x3, Normal Motor, Normal Sensation ED Course And Treatment - Laboratory Results Result Diagrams: 03/11/17 14:58 03/11/17 14:58 Lab Interpretation: No Acute Changes Urine POC: Negative ECG: Interpreted By Me, Viewed By Me ECG Rhythm: Sinus Rhythm ECG Interpretation: No Acute Changes Rate From EC O2 Sat by Pulse Oximetry: 100 Pulse Ox Interpretation: Normal - Radiology CXR: Viewed By Me, Read By Radiologist CXR Interpretation: Yes: No Acute Disease Progress - Interventions Interventions:: Observation - Medications Administered Oral: Aspirin - Data Reviewed Data Reviewed: Lab, Diagnostic imaging, EKG, Old records - Patient Status Patient status: Completely improved - Continuity of Care Discussed patient case with:: Patient, ED Nurse - Patient Plan Patient Plan: Discharge, F/U with PCP, Continue present meds Disposition Counseled Patient/Family Regarding: Studies Performed, Diagnosis, Need For Followup, Rx Given - Disposition Referrals: [facility] [Outside] Disposition: HOME/ ROUTINE Disposition Time: 16:57 Condition: IMPROVED Additional Instructions: Follow up in the clinic within 1 week for further evaluation and treatment. Return to the ER if you develop shortness of breath, dizziness, worsening of symptoms or if you have any other concerns. Prescriptions: Famotidine [Pepcid] 20 mg PO BID #30 tab Instructions: Chest Pain (ED) Forms: [employer] (Icelandic) Print Language: CHILEAN - Clinical Impression Clinical Impression: Non-cardiac chest pain
[2017-03-11 17:10] VITALS: BP 111/73; PULSE 61; TEMP 98.3
--- NOTE | 2017-03-13 10:27 | CARD ---
APPROVED REPORT EKG Measurement Heart [id number] <Conclusion> Normal sinus rhythm Normal ECG
== END 2017-03-11 17:19 | disposition home or self-care (01) ==
LOC: C.ER 13:50
DX: R07.89 Other chest pain (principal)